=== PATIENT | male | born 1995 | race Caucasian/White ===

== ENCOUNTER 2021-04-04 08:37 | Emergency (ER) | payer MEDICAID ==
[~2021-04-04] VITALS: Ht 172.7 cm; Wt 64.0 kg
[2021-04-04] MEDS ORDERED: ALPRAZOLAM 0.25 MG TABLET PO ONE (09:15)
[2021-04-04 11:25] VITALS: BP 133/78
== END 2021-04-04 11:26 | disposition home or self-care (01) ==
LOC: ER 08:37
DX: F41.9 Anxiety disorder, unspecified (principal)
CPT/HCPCS: 99283